=== PATIENT | male | born 1940 ===

== ENCOUNTER 2016-10-10 11:53 | Day surgery (SDC) | payer OTHER ==
[~2016-10-10 11:53] MED LIST: FINASTERIDE5 MG PO; NORCO1 TA1 PO; SIMVASTATIN10 MG; SINEMET1 TA2 PO; TERAZOSIN HCL1 MG PO
--- NOTE | 2016-10-10 15:21 | Provider's Discharge Care Plan ---
Problem, Goal, Plan Problem List 1. Status post colonoscopy with polypectomy Goals: Screening, Therapeutic intervention Instructions: Follow up as directed, Take meds as directed
--- NOTE | 2016-10-10 15:21 | Provider's Discharge Care Plan ---
Problem, Goal, Plan Problem List 1. Status post colonoscopy with polypectomy Goals: Screening, Therapeutic intervention Instructions: Follow up as directed, Take meds as directed
--- NOTE | 2016-10-10 15:30 | Operative Report ---
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 Rare occasions of bright red blood per rectum on Tayler paper following bouts of constipation and hard stool. FINDINGS: Minor sigmoid diverticuli, a small polyp within cecum, transverse, and sigmoid colon. The rectal vault normal Surgical Technique: Patient was brought to the operating room. Patient was placed in the left lateral decubitus position. Patient was administered TIVA by anesthesia. Once anesthesia had taken effect digital rectal examination was performed. No masses or stenosis was appreciated. This was then followed by the passage of a fiberoptic video flexible Olympus colonoscope. The scope was then passed without difficulty and the cecum was visualized. The cecum was identified by anatomical landmarks and anterior abdominal wall ballottement. On withdrawing the scope the aforementioned findings were noted. 3 polyps identified, one in the cecum, transverse colon, and sigmoid colon were removed and retrieved using electrocautery snare. The scope was then slowly withdrawn and was then retroflexed and a good view of the rectal vault obtained. The scope was then completely withdrawn. Patient tolerated procedure well. Patient was transferred to the recovery room in stable condition. There were no intraoperative or anesthetic complications.
== END 2016-10-10 16:31 | disposition home or self-care (01) ==
LOC: OR SRH 11:53 → SCU SRH 12:04 → OR SRH 14:00
PROVIDERS: Specialist
PROC: 0DBL8ZX Excision of Transverse Colon, Via Natural or Artificial Opening Endoscopic, Diagnostic (ICD-10-PCS; principal; 2016-10-10 14:00)
PROC: 0DBN8ZX Excision of Sigmoid Colon, Via Natural or Artificial Opening Endoscopic, Diagnostic (ICD-10-PCS; principal; 2016-10-10 14:00)
PROC: 0DBH8ZX Excision of Cecum, Via Natural or Artificial Opening Endoscopic, Diagnostic (ICD-10-PCS; principal; 2016-10-10 14:00)
DX: D12.0 Benign neoplasm of cecum (principal); D12.5 Benign neoplasm of sigmoid colon; D12.3 Benign neoplasm of transverse colon
CPT/HCPCS: 29229; 29240; 50004; 60001; 82900; 83526